=== PATIENT | female | born 2000 | race Caucasian/White ===

== ENCOUNTER 2024-02-01 02:07 | Emergency (ER) | payer BC ==
[~2024-02-01] VITALS: Ht 170.2 cm; Wt 65.8 kg
[2024-02-01 02:43] VITALS: BP 142/87; TEMP 98; O2SAT 99
[2024-02-01] MEDS ORDERED: LIDOCAINE HCL/MPF 1% 30 ML VIAL IJ ONE (03:04)
[2024-02-01] MEDS: LIDOCAINE HCL/PF 1% 30 ML VIAL IM ONE (03:07)
== END 2024-02-01 03:28 | disposition home or self-care (01) ==
LOC: ER 02:36
DX: S81.011A Laceration without foreign body, right knee, initial encounter (principal); Z88.0 Allergy status to penicillin; W18.39XA Other fall on same level, initial encounter; Y93.89 Activity, other specified; Y92.89 Other specified places as the place of occurrence of the external cause; Y99.8 Other external cause status
CPT/HCPCS: 99282; 12001; J3490 ×2; A6403

== ENCOUNTER 2024-02-07 12:27 | Emergency (ER) | payer BC ==
[~2024-02-07] VITALS: Ht 170.2 cm; Wt 65.8 kg
[2024-02-07 12:57] VITALS: BP 136/80; TEMP 97.8
[2024-02-07 13:24] VITALS: O2SAT 100
== END 2024-02-07 13:26 | disposition home or self-care (01) ==
LOC: ER 12:27
DX: S81.019D Laceration without foreign body, unspecified knee, subsequent encounter (principal); Z48.02 Encounter for removal of sutures; Z88.0 Allergy status to penicillin; X58.XXXD Exposure to other specified factors, subsequent encounter